=== PATIENT | male | born 1975 | race American Indian/Alaskan Native ===

== ENCOUNTER 2019-08-21 16:29 | Emergency (ER) | payer SELFPAY ==
[~2019-08-21] VITALS: Ht 175.3 cm; Wt 127.0 kg
== END 2019-08-21 18:04 | disposition left against medical advice (07) ==
LOC: ER 16:29
DX: Z53.21 Procedure and treatment not carried out due to patient leaving prior to being seen by health care provider (principal)

== ENCOUNTER 2024-05-06 09:05 | Day surgery (SDC) | payer BC ==
[~2024-05-06] VITALS: Ht 177.8 cm; Wt 114.0 kg
[2024-05-06] MEDS ORDERED: FentaNYL Citrate 50 MCG/ML 2 ML Injection ONE ×5 (09:13→14:42)
[2024-05-06] MEDS ORDERED: propofoL 20 ML IV ONE (09:13)
[2024-05-06] MEDS ORDERED: CeFAZolin Sodium 2,000 MG VIAL ONE (09:19)
[2024-05-06] MEDS ORDERED: NS 50 ML IV ONE (09:19)
[2024-05-06] MEDS ORDERED: Bupivacaine 0.5% HCl 5 MG/ML 30MLVIAL ONE (09:20)
[2024-05-06] MEDS ORDERED: Midazolam HCl 1MG / ML 2ML Vial ONE (09:27)
[2024-05-06] MEDS ORDERED: Lactated Ringer's 1,000 ML IV ONE ×3 (09:35→12:18)
--- NOTE | 2024-05-06 10:10 | NUR ---
05/06/24 1010 Iliana Saab TIME OUT PERFORMED AT BEDSIDE WITH DR DYER AT 0954 PRIOR TO START OF NERVE BLOCK. FEMORAL NERVE BLOCK STARTED AT 0958 AND ENDED AT 1000. POPLITEAL NERVE BLOCK STARTED AT 1002 AND ENDED AT 1003. PT SPO2 AND HR MONITORED THROUGHOUT PROCEDURE. PT PLACED ON 3L O2 AT BEGINNING OF NERVE BLOCK DUE TO O2 SATS FLUCTUATING BETWEEN 90-95%. O2 SATS MAINTAINING AT 96-98% AFTER 3L O2 PLACED. PT TOLERATED PROCEDURE WELL.
[2024-05-06] MEDS ORDERED: Ondansetron HCl 2 MG / ML 2ML Vial ONE ×3 (10:13→15:24)
[2024-05-06] MEDS ORDERED: Dexamethasone Sod Phos 10 MG/ML 1ML VIAL ONE (10:13)
[2024-05-06] MEDS ORDERED: Phenylephrine HCl 100 MCG/ML-NS 10MLSYR (1MG/10ML) ONE (10:13)
[2024-05-06] MEDS ORDERED: EPINEPhrine HCl 1 MG/ML 1ML Amp XX ONE (10:29)
[2024-05-06] MEDS ORDERED: Lidocaine 1%-Epineph 1:100000 20 ML MDV INJ ONE (10:29)
--- NOTE | 2024-05-06 10:37 | NUR ---
05/06/24 Jose Enrique Robert 1 MG EPI ADDED TO EACH OF THE FIRST 3 BAGS OF LR FOR IRRIGATION AT [facility]. 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 OK TO PROCEED PER DR. SHULTZ.
[2024-05-06] MEDS ORDERED: Ketorolac Tromethamine 30mg Vial ONE (13:20)
[2024-05-06] MEDS ORDERED: Labetalol HCL 5 MG/ML 4ML Injection (Single Dose) ONE ×2 (13:20→13:55)
[2024-05-06] MEDS ORDERED: CeFAZolin Sodium 1000 mg Vial ONE (13:20)
--- NOTE | 2024-05-06 14:16 | NUR ---
05/06/24 1416 CUCA SOTELO PT SWEATING PROFUSLY. COOL CLOTH PLACED ON FOREHEAD.
--- NOTE | 2024-05-06 14:34 | NUR ---
05/06/24 1434 CUCA SOTELO PT C/O NAUSEA. ZOFRAN PULLED. PT FALLS BACK TO SLEEP EASILY. PT ON 10L VIA NON-REBREATHER. SNORING LOUDLY. PLETH LOOKS GOOD.
[2024-05-06 14:56] VITALS: BP 125/88
[2024-05-06] MEDS ORDERED: Dexamethasone Sodium Phosphate 4 MG/ML 5ML VIAL ONE (15:08)
[2024-05-06] MEDS ORDERED: Metoclopramide HCl 5MG / ML 2ML Vial ONE (15:24)
== END 2024-05-06 17:04 | disposition home or self-care (01) ==
LOC: ORSCSDS 09:05
PROVIDERS: Orthopaedic Surgery Sports Medicine
PROC: 0MRP4KZ Replacement of Left Knee Bursa and Ligament with Nonautologous Tissue Substitute, Percutaneous Endoscopic Approach (ICD-10-PCS; principal; 2024-05-06 10:15)
PROC: 0SQD4ZZ Repair Left Knee Joint, Percutaneous Endoscopic Approach (ICD-10-PCS; principal; 2024-05-06 10:15)
DX: S83.512A Sprain of anterior cruciate ligament of left knee, initial encounter (principal); S83.282A Other tear of lateral meniscus, current injury, left knee, initial encounter; S83.242A Other tear of medial meniscus, current injury, left knee, initial encounter; M25.562 Pain in left knee; Z68.36 Body mass index [BMI] 36.0-36.9, adult; W18.39XA Other fall on same level, initial encounter; Y93.59 Activity, other involving other sports and athletics played individually
CPT/HCPCS: C1713; C1762; J0171; J0690; J1100; J1885; J2250; J2371; J2405; J2704; J2765; J3010; J7120

== ENCOUNTER 2024-09-23 06:51 | Day surgery (SDC) | payer BC ==
[2024-09-23] VITALS (18 sets, daily range): BP systolic 96–169; BP diastolic 44–147
[~2024-09-23] VITALS: Ht 175.3 cm; Wt 117.1 kg
[~2024-09-23 06:51] MED LIST: NS 1,000 ML BAG IV SCH; NS 500 ML IV SCH
[2024-09-23] MEDS ORDERED: Midazolam HCl 1MG / ML 2ML Vial ONE (07:15)
[2024-09-23] MEDS ORDERED: propofoL 40 ML IV ONE (07:15)
--- NOTE | 2024-09-23 07:37 | NUR ---
09/23/24 0737 Eugenio Alvarez CONFIRMED AND REVIEWED H&P, MEDCICATIONS, ALLERGIES, MEDICAL HISTORY, RESPIRATORY HISTORY, VITAL SIGNS, 3-LEAD EKG, CONSENTS, AND PHYSICIAN ORDERS. PATIENT CONFIRMS NPO STATUS AND AGREES WITH SCHEDULED PROCEDURE. MONITOR INTACT WITH CONTINUOUS PULSE OXIMETRY, CAPNOGRAPHY, 3-LEAD EKG, INTERMITTENT BP. SUPPLEMENTAL O2 TO BE TITRATED THROUGHOUT PROCEDURE TO MAINTAIN O2 SATURATION ABOVE 90%. PATIENT DETERMINED TO BE ASA APPROPRIATE FOR PROPOFOL SEDATION PRIOR TO START OF PROCEDURE BY DR. CHEN.
--- NOTE | 2024-09-23 08:42 | NUR ---
Patient up to Ambulate independently. Gait steady. Discharge instructions reviewed with patient. Patient verbalizes understanding. Copy given to patient to take home. Patient States Post-Procedure ride home has been arranged. Discharged via wheelchair to private car for ride home. PT TOLERATING PO, REPORTS READY TO GO HOME. DENIES PAIN,N/V,SOB.
== END 2024-09-23 08:42 | disposition home or self-care (01) ==
LOC: ORSCMMR 06:51 → ORD 07:30 → ORSCMMR 08:42
PROVIDERS: Internal Medicine Gastroenterology
PROC: 0DBK8ZX Excision of Ascending Colon, Via Natural or Artificial Opening Endoscopic, Diagnostic (ICD-10-PCS; principal; 2024-09-23 07:30)
PROC: 0DBN8ZX Excision of Sigmoid Colon, Via Natural or Artificial Opening Endoscopic, Diagnostic (ICD-10-PCS; principal; 2024-09-23 07:30)
DX: K62.5 Hemorrhage of anus and rectum (principal); D12.2 Benign neoplasm of ascending colon; D12.5 Benign neoplasm of sigmoid colon
CPT/HCPCS: 88305; J2250; J2704; J7040

== ENCOUNTER 2025-06-12 07:05 | Day surgery (SDC) | payer OTHER ==
[~2025-06-12] VITALS: Ht 175.3 cm; Wt 116.9 kg
[2025-06-12 07:21] VITALS: BP 142/101
--- NOTE | 2025-06-12 07:29 | NUR ---
History, Chart, Medications and Allergies reviewed before start of procedure. Patient confirms NPO status and agrees with scheduled surgery. Pre-Op teaching done. Pt verbalizes understanding. Patient states colon prep results clear. Lungs clear T/O to Auscultation.
--- NOTE | 2025-06-12 08:08 | NUR ---
06/12/25 0808 Eugenio Alvarez History, Chart, Medications and Allergies reviewed before start of procedure.MONITOR INTACT WITH CONTINUOUS PULSE OXIMETRY, CONTINUOUS END TITAL CO2, 3-LEAD EKG AND INTERMITTENT BLOOD PRESSURE.O2 VIA POM INTACT THROUGHOUT SEDATION/PROCEDURE.See Anesthesia record.
[2025-06-12 09:06] VITALS: BP 123/73
[2025-06-12 09:15] VITALS: BP 120/79
[2025-06-12 09:29] VITALS: BP 142/88
--- NOTE | 2025-06-12 09:44 | NUR ---
Patient up to Ambulate independently. Gait steady. Discharge instructions reviewed with patient. Patient verbalizes understanding. Copy given to patient to take home, WE[facility] FAMILY. Patient States Post-Procedure ride home has been arranged. Discharged via wheelchair to private car for ride home. PT TOLERATING PO, REPORTS READY TO GO HOME.
== END 2025-06-12 09:44 | disposition home or self-care (01) ==
LOC: ORSCMMR 07:05 → ORD 08:30 → ORSCMMR 09:44
PROVIDERS: Internal Medicine Gastroenterology
PROC: 0DBP8ZX Excision of Rectum, Via Natural or Artificial Opening Endoscopic, Diagnostic (ICD-10-PCS; principal; 2025-06-12 08:30)
PROC: 0DBL8ZX Excision of Transverse Colon, Via Natural or Artificial Opening Endoscopic, Diagnostic (ICD-10-PCS; principal; 2025-06-12 08:30)
PROC: 0DBK8ZX Excision of Ascending Colon, Via Natural or Artificial Opening Endoscopic, Diagnostic (ICD-10-PCS; principal; 2025-06-12 08:30)
PROC: 0DBN8ZX Excision of Sigmoid Colon, Via Natural or Artificial Opening Endoscopic, Diagnostic (ICD-10-PCS; principal; 2025-06-12 08:30)
DX: K62.5 Hemorrhage of anus and rectum (principal); D12.5 Benign neoplasm of sigmoid colon; D12.3 Benign neoplasm of transverse colon; K63.5 Polyp of colon; K62.1 Rectal polyp; Z86.0101 Personal history of adenomatous and serrated colon polyps; E66.01 Morbid (severe) obesity due to excess calories; Z68.41 Body mass index [BMI] 40.0-44.9, adult
CPT/HCPCS: 88305; J2704; J7120